=== PATIENT | male | born 1995 ===

== ENCOUNTER 2023-12-18 10:56 | Emergency (ER) | payer OTHER ==
[2023-12-18] MEDS: cefTRIAXone 1 GM, Lidocaine 1% 2.1 ML IM ONE (17:53)
== END 2023-12-18 18:00 | disposition home or self-care (01) ==
LOC: DL.ED 10:56
DX: H66.001 Acute suppurative otitis media without spontaneous rupture of ear drum, right ear (principal)
CPT/HCPCS: 96372; 99283; J0696; 99282; J3490